=== PATIENT | female | born 1965 | race Caucasian/White ===

== ENCOUNTER 2021-11-27 06:48 | Outpatient (CLI) | payer OTHER | END 2021-11-27 06:57 | disposition home or self-care (01) | LOC: LAB 06:48 | PROVIDERS: ATTEND Student in an Organized Health Care Education/Training Program | DX: D64.9 Anemia, unspecified (principal); E03.8 Other specified hypothyroidism; N95.1 Menopausal and female climacteric states; I10 Essential (primary) hypertension; C51.9 Malignant neoplasm of vulva, unspecified; N30.00 Acute cystitis without hematuria; Z12.11 Encounter for screening for malignant neoplasm of colon ==

== ENCOUNTER → 2021-12-01 | Outpatient (CLI) | payer OTHER | END | disposition home or self-care (01) | LOC: MAMO-SONO 09:33 | PROVIDERS: ATTEND Student in an Organized Health Care Education/Training Program | DX: Z12.31 Encounter for screening mammogram for malignant neoplasm of breast (principal); N60.11 Diffuse cystic mastopathy of right breast; N60.12 Diffuse cystic mastopathy of left breast ==

== ENCOUNTER 2022-12-15 06:34 | Outpatient (CLI) | payer OTHER | END 2022-12-15 06:36 | disposition home or self-care (01) | LOC: LAB 06:34 | PROVIDERS: ATTEND Student in an Organized Health Care Education/Training Program | DX: Z12.11 Encounter for screening for malignant neoplasm of colon (principal); D64.9 Anemia, unspecified; E03.8 Other specified hypothyroidism; N95.1 Menopausal and female climacteric states; I10 Essential (primary) hypertension; C51.9 Malignant neoplasm of vulva, unspecified; N30.00 Acute cystitis without hematuria; A64 Unspecified sexually transmitted disease; R97.8 Other abnormal tumor markers; R79.89 Other specified abnormal findings of blood chemistry; E55.9 Vitamin D deficiency, unspecified; A60.9 Anogenital herpesviral infection, unspecified ==

== ENCOUNTER 2022-12-22 10:45 | Outpatient (CLI) | payer OTHER | END 2022-12-22 10:57 | disposition home or self-care (01) | LOC: NUCLEAR 10:45 | PROVIDERS: ATTEND Student in an Organized Health Care Education/Training Program | DX: M81.0 Age-related osteoporosis without current pathological fracture (principal) ==

== ENCOUNTER 2022-12-22 10:57 | Outpatient (CLI) | payer OTHER | END 2022-12-22 11:00 | disposition home or self-care (01) | LOC: MAMO-SONO 10:57 | PROVIDERS: ATTEND Student in an Organized Health Care Education/Training Program | DX: N60.11 Diffuse cystic mastopathy of right breast (principal); N60.12 Diffuse cystic mastopathy of left breast; Z12.31 Encounter for screening mammogram for malignant neoplasm of breast ==

== ENCOUNTER 2023-12-12 14:41 | Outpatient (CLI) | payer OTHER | END 2023-12-12 14:47 | disposition home or self-care (01) | LOC: MAMO-SONO 14:41 | PROVIDERS: ATTEND Obstetrics & Gynecology | DX: N60.11 Diffuse cystic mastopathy of right breast (principal); N60.12 Diffuse cystic mastopathy of left breast ==

== ENCOUNTER 2023-12-13 06:54 | Outpatient (CLI) | payer OTHER ==
[2023-12-13 08:07] LABS: PH,URINE 8.5 (5.0-8.0); URINE APPEARANCE Turbid; URINE BILIRRUBIN Negative (NEGATIVE); URINE BLOOD Negative; URINE COLOR Yellow; URINE GLUCOSE Negative (NEGATIVE); URINE KETONE Negative (NEGATIVE); URINE LEUKOCYTE Negative; URINE NITRATE Negative; URINE PROTEIN Negative (NEGATIVE); URINE UROBILINOGEN 0.2 E.U./dl
[2023-12-13 08:11] LABS: URINE BACTERIA 55.4 uL (0.0-1933); URINE EPITHELIAL CELLS 1.6 uL (0.0-38.8); URINE RBC 9.6 uL (0.0-20.8); URINE WBC 10.6 uL (0.0-23.2)
[2023-12-13 08:46] LABS: HEMATOCRIT 37.3 % (36.0-45.00); HEMOGLOBIN 12.9 g/dL (12.0-15.00); MEAN CELL VOLUME 87.3 fL (80.00-100.00); MEAN CORPUSCULAR HEMOGLOBIN 30.3 pg (27.00-32.0); MEAN CORPUSCULAR HGB CONC 34.7 g/dl (32.0-36.0); PLATELET COUNT 205 K/uL (150-450); RED BLOOD COUNT 4.27 M/uL (4.00-6.00); RED CELL DISTRIBUTION WIDTH 15.1 % (11.5-14.5)
[2023-12-13 09:45] LABS: ALBUMIN 3.9 gm/dL (3.4-5.0); BILIRUBIN TOTAL 0.33 mg/dL (0.3-1.2); CALCIUM 8.8 mg/dL (8.5-10.1); CREATININE SERUM 0.57 mg/dL (0.55-1.02); GFR 108.56; GLOBULINA 3.5 G/DL (2.4-3.5); POTASSIUM 4.6 mEq/L (3.5-5.1); TOTAL PROTEIN 7.4 gm/dL (6.4-8.2); TSH 5.06 uIU/mL (0.358-3.74)
== END 2023-12-13 06:59 | disposition home or self-care (01) ==
LOC: LAB 06:54
PROVIDERS: ATTEND Obstetrics & Gynecology
DX: Z12.11 Encounter for screening for malignant neoplasm of colon (principal); D64.9 Anemia, unspecified; E03.8 Other specified hypothyroidism; N95.1 Menopausal and female climacteric states; I10 Essential (primary) hypertension; C51.9 Malignant neoplasm of vulva, unspecified; N30.00 Acute cystitis without hematuria; E83.51 Hypocalcemia; A64 Unspecified sexually transmitted disease; N39.0 Urinary tract infection, site not specified; R79.89 Other specified abnormal findings of blood chemistry; E55.9 Vitamin D deficiency, unspecified; A60.9 Anogenital herpesviral infection, unspecified

== ENCOUNTER 2024-01-09 09:38 | Outpatient (CLI) | payer OTHER | END 2024-01-09 09:56 | disposition home or self-care (01) | LOC: SONOGRAMA 09:38 | DX: H40.10X0 Unspecified open-angle glaucoma, stage unspecified (principal); E03.9 Hypothyroidism, unspecified; M81.0 Age-related osteoporosis without current pathological fracture ==

== ENCOUNTER 2024-01-25 07:09 | Outpatient (CLI) | payer OTHER ==
[2024-01-25 08:09] LABS: T4 FREE 1.06 NG/ML (0.76-1.46); TSH 3.19 uIU/mL (0.358-3.74)
== END 2024-01-25 14:50 | disposition home or self-care (01) ==
LOC: LAB 07:09
DX: E03.9 Hypothyroidism, unspecified (principal)

== ENCOUNTER → 2024-12-04 06:49 | Outpatient (CLI) | payer OTHER ==
[2024-12-04 07:33] LABS: URINE APPEARANCE Clear; URINE BILIRRUBIN Negative (NEGATIVE); URINE BLOOD Negative; URINE COLOR Yellow; URINE GLUCOSE Negative (NEGATIVE); URINE KETONE Negative (NEGATIVE); URINE LEUKOCYTE Negative; URINE NITRATE Negative; URINE PROTEIN Negative (NEGATIVE); URINE UROBILINOGEN 0.2 E.U./dl
[2024-12-04 07:36] LABS: URINE BACTERIA 4.7 uL (0.0-1933); URINE EPITHELIAL CELLS 2.9 uL (0.0-38.8); URINE RBC 14.9 uL (0.0-20.8); URINE WBC 5.3 uL (0.0-23.2)
[2024-12-04 07:40] LABS: BASO % 0.7 % (0.1-1.2); EOS # 0.06 (0.04-0.54); EOS % 2.0 % (0.7-7.0); LYMPH # 1.32 (1.18-3.74); LYMPH % 44.7 % (19.3-53.1); MEAN PLATELET VOLUME 9.60 fl (9.4-12.4); MONO # 0.35 (0.24-0.82); MONO % 11.9 % (4.7-12.5); NEUT # 1.20 (1.56-6.13); NEUT % 40.7 % (34.0-71.1); RED CELL DISTRIBUTION WIDTH 14.0 % (11.6-14.4)
[2024-12-04 08:04] LABS: URINE CAST 0.00 uL (0.0-1.40)
[2024-12-04 08:40] LABS: ALT/SGPT 23.0 U/L (12-78); AST/SGOT 22.0 U/L (15-37); BILIRUBIN TOTAL 0.46 mg/dL (0.3-1.2); BUN CREA RATIO 29.0 (7.0-25.0); CHOL HDL RATIO 1.7 (0-5.0); CREATININE SERUM 0.56 mg/dL (0.55-1.02); GFR 110.42; GLOBULINA 3.3 G/DL (2.4-3.5); GLUCOSE FASTING 91.0 mg/dL (65-100); HDL 125.0 mg/dl (40-60); LDL 82.0 mg/dl (0-130); OSMOLALITY SERUM 288.0 MOSM/KG (275-295); T4 FREE 0.97 NG/ML (0.76-1.46); TSH 3.0 uIU/mL (0.358-3.74); VLDL 9.0 (0-39)
[2024-12-04 08:51] LABS: INR 0.95
== END | disposition home or self-care (01) ==
LOC: LAB 06:49
DX: E78.2 Mixed hyperlipidemia (principal); R30.0 Dysuria; E03.9 Hypothyroidism, unspecified; R73.01 Impaired fasting glucose; E04.1 Nontoxic single thyroid nodule; E11.39 Type 2 diabetes mellitus with other diabetic ophthalmic complication; I15.8 Other secondary hypertension; D68.32 Hemorrhagic disorder due to extrinsic circulating anticoagulants; D69.9 Hemorrhagic condition, unspecified

== ENCOUNTER 2025-03-11 07:54 | Outpatient (CLI) | payer OTHER ==
[2025-03-11 08:54] LABS: BASO % 1.1 % (0.1-1.2); EOS # 0.08 (0.04-0.54); EOS % 2.8 % (0.7-7.0); LYMPH # 1.16 (1.18-3.74); LYMPH % 41.0 % (19.3-53.1); MEAN PLATELET VOLUME 8.70 fl (9.4-12.4); MONO # 0.32 (0.24-0.82); MONO % 11.3 % (4.7-12.5); NEUT # 1.23 (1.56-6.13); NEUT % 43.4 % (34.0-71.1); RED CELL DISTRIBUTION WIDTH 14.2 % (11.6-14.4)
[2025-03-11 08:56] LABS: URINE APPEARANCE Cloudy; URINE BILIRRUBIN Negative (NEGATIVE); URINE BLOOD Negative; URINE COLOR Yellow; URINE GLUCOSE Negative (NEGATIVE); URINE KETONE Negative (NEGATIVE); URINE LEUKOCYTE Negative; URINE NITRATE Negative; URINE PROTEIN Negative (NEGATIVE); URINE UROBILINOGEN 0.2 E.U./dl
[2025-03-11 09:00] LABS: URINE RBC 6.7 uL (0.0-20.8)
[2025-03-11 09:11] LABS: INR 0.95
[2025-03-11 09:12] LABS: URINE BACTERIA 2.2 uL (0.0-1933); URINE CAST 0.00 uL (0.0-1.40); URINE EPITHELIAL CELLS 0.4 uL (0.0-38.8); URINE WBC 1.6 uL (0.0-23.2)
[2025-03-11 09:42] LABS: BUN CREA RATIO 28.0 (7.0-25.0); CREATININE SERUM 0.47 mg/dL (0.55-1.02); GFR 134.71; GLUCOSE FASTING 87.0 mg/dL (65-100); GLUCOSE RANDOM 87.0 mg/dL (65-100); OSMOLALITY SERUM 281.0 MOSM/KG (275-295)
== END 2025-03-11 07:57 | disposition home or self-care (01) ==
LOC: LAB 07:54
DX: E11.39 Type 2 diabetes mellitus with other diabetic ophthalmic complication (principal); I15.8 Other secondary hypertension; D68.32 Hemorrhagic disorder due to extrinsic circulating anticoagulants; D69.9 Hemorrhagic condition, unspecified